=== PATIENT | female | born 1945 | race Caucasian/White ===

== ENCOUNTER 2017-07-14 05:42 | Inpatient (IN) ==
[2017-07-07 10:32] LABS: Basophils # 0.1 10*3/uL (0.0-0.2); Eosinophils # 0.1 10*3/uL (0.0-0.87); Eosinophils % 1.9 % (0.00-10.9); Hematocrit 42.8 VOL% (35.7-47.0); Hemoglobin 14.6 GM/DL (12.0-16.0); Immature Granulocytes % 0.4 %; Immature Granulocytes Absolute 0.02 #; Lymphocytes # 1.7 10*3/uL (1.4-4.0); Lymphocytes % 33.2 % (21.3-54.2); Mean Corpuscular HGB Conc 34.1 GM/DL (32-36); Mean Corpuscular Hemoglobin 34 PG (27-34); Mean Corpuscular Volume 100.2 FL (87-102); Mean Platelet Volume 9.1 FL (9.6-12.0); Monocytes # 0.5 10*3/uL (0.11-0.8); Monocytes % 9.8 % (1.7-12.7); Neutrophils # 2.8 10*3/uL (1.4-7.4); Neutrophils % 53.7 % (38.7-73.9); Platelet Count 360 T/CUMM (130-400); Red Blood Count 4.27 MC/CUMM (3.8-5.5); Red Cell Distribution Width 17.4 % (9.3-17.3); White Blood Count 5.2 T/CUMM (4-12)
[2017-07-07 10:57] LABS: Apearance,Urine CLEAR (Clear); Bacteria,Urine Occasional /HPF (Few); Bilirubin,Urine Negative (Negative); Blood, Urine Negative (Negative); Glucose,Urine (UA) Negative (Negative); Ketones,Urine Negative (Negative); Nitrite,Urine Negative (Negative); Protein,Urine Negative; RBC,Urine <1 /HPF (0-4); Urine Color Straw (Yellow); Urine Specific Gravity 1.004 (1.001-1.035); Urine Urobilinogen < 2.0 EU/DL (0.2-1.0); WBC,Urine 1 /HPF (0-6)
[2017-07-07 11:05] LABS: Alanine Aminotransferase 50 U/L (13-56); Albumin 3.8 G/DL (3.4-5.0); Alkaline Phosphatase 106 U/L (45-117); Aspartate Amino Transferase 33 U/L (0-37); Bilirubin,Total < 0.39 MG/DL (0.2-1.0); Blood Urea Nitrogen 16 MG/DL (7-18); Calcium 8.8 MG/DL (8.5-10.1); Glucose 93 MG/DL (74-106); Osmolality,Calculated 279.4 MOS/KG (273-304); Potassium 4.8 MMOL/L (3.5-5.1); Sodium 140 MMOL/L (136-145); Total Protein 7.2 G/DL (6.4-8.3)
[2017-07-07 11:06] LABS: INR 0.9; PT Patient Result 9.9 SECS; Partial Thromboplastin Time 26.6 SECS (0-40)
[2017-07-14] MEDS ORDERED: LACTATED RINGERS 1,000 ML IV SCH (06:00)
[2017-07-14] MEDS ORDERED: FAMOTIDINE 20 MG TABLET PO ONE ×2 (06:08→06:29)
[2017-07-14] MEDS ORDERED: LORazepam 0.5 MG TABLET PO ONE ×2 (06:08→06:29)
[2017-07-14 06:56] LABS: Basophils % 0.9 % (0.0-0.8); Eosinophils # 0.1 10*3/uL (0.0-0.87); Eosinophils % 2.6 % (0.00-10.9); Hematocrit 38.8 VOL% (35.7-47.0); Hemoglobin 13.3 GM/DL (12.0-16.0); Immature Granulocytes % 0.2 %; Immature Granulocytes Absolute 0.01 #; Lymphocytes # 1.6 10*3/uL (1.4-4.0); Lymphocytes % 35.1 % (21.3-54.2); Mean Corpuscular HGB Conc 34.3 GM/DL (32-36); Mean Corpuscular Hemoglobin 35 PG (27-34); Mean Corpuscular Volume 101.3 FL (87-102); Mean Platelet Volume 9.1 FL (9.6-12.0); Monocytes # 0.5 10*3/uL (0.11-0.8); Monocytes % 10.9 % (1.7-12.7); Neutrophils # 2.3 10*3/uL (1.4-7.4); Neutrophils % 50.3 % (38.7-73.9); Platelet Count 292 T/CUMM (130-400); Red Blood Count 3.83 MC/CUMM (3.8-5.5); White Blood Count 4.6 T/CUMM (4-12)
[2017-07-14] MEDS ORDERED: ceFAZolin 1,000 MG in SYRINGE 1 EACH IV ONE (07:00)
[2017-07-14] MEDS ORDERED: VANCOMYCIN INJ 1,000 MG in SODIUM CHLORIDE 0.9% 250 ML IV ONE (07:00)
[2017-07-14 07:14] LABS: INR 0.9; PT Patient Result 9.8 SECS; Partial Thromboplastin Time 25.7 SECS (0-40)
[2017-07-14 07:31] LABS: Calcium 8.5 MG/DL (8.5-10.1); Magnesium 2.1 MG/DL (1.8-2.4); Osmolality,Calculated 283.1 MOS/KG (273-304); Potassium 4.2 MMOL/L (3.5-5.1)
[2017-07-14] MEDS ORDERED: VANCOMYCIN 1,000 MG VIAL ONE (08:22)
[2017-07-14] MEDS ORDERED: ceFAZolin 1,000 MG VIAL ONE (08:22)
[2017-07-14] MEDS ORDERED: LORazepam 0.5 MG TABLET ONE (08:27)
[2017-07-14] MEDS ORDERED: FAMOTIDINE 20 MG TABLET ONE (08:27)
[2017-07-14] MEDS ORDERED: ROPIVACAINE 0.5% 30 ML VIAL ONE (08:47)
[2017-07-14] MEDS ORDERED: TRANEXAMIC ACID 1,000 MG/10 ML VIAL IV ONE (09:01)
[2017-07-14] MEDS ORDERED: MORPHINE 2 MG/1 ML SYRINGE IV PRN ×2 (09:10)
[2017-07-14] MEDS ORDERED: ZALEPLON 5 MG CAPSULE PO PRN (09:10)
[2017-07-14] MEDS ORDERED: MAGNESIUM HYDROXIDE SUSP 30 ML UDCUP PO PRN (09:10)
[2017-07-14] MEDS ORDERED: diphenhydrAMINE CAP 25 MG CAPSULE PO PRN (09:10)
[2017-07-14] MEDS ORDERED: oxyCODONE IR 5 MG TABLET PO PRN (09:10)
[2017-07-14] MEDS ORDERED: ONDANSETRON 4 MG/2 ML VIAL IV PRN ×2 (09:10→11:23)
[2017-07-14] MEDS ORDERED: BACITRACIN OINT 0.9 GM PACK TOP ONE (10:32)
[2017-07-14] MEDS: LACTATED RINGERS 1,000 ML IV SCH ×2 (10:46→22:43)
[2017-07-14] MEDS ORDERED: PROPOFOL 200 MG/20 ML VIAL IV ONE (11:17)
[2017-07-14] MEDS ORDERED: DESFLURANE 1 UNIT/15 MINUTE INH ONE (11:17)
[2017-07-14] MEDS ORDERED: fentaNYL 100 MCG/2 ML VIAL ONE (11:18)
[2017-07-14] MEDS ORDERED: KETOROLAC 30 MG/1 ML VIAL ONE (11:18)
[2017-07-14] MEDS ORDERED: MIDAZOLAM 2 MG/2 ML VIAL ONE (11:18)
[2017-07-14] MEDS ORDERED: GLYCOPYRROLATE 0.4 MG/2 ML VIAL ONE (11:18)
[2017-07-14] MEDS ORDERED: ONDANSETRON 4 MG/2 ML VIAL ONE (11:18)
[2017-07-14] MEDS ORDERED: NEOSTIGMINE 10 MG/10 ML VIAL ONE (11:19)
[2017-07-14] MEDS ORDERED: ACETAMINOPHEN 1,000 MG/100 ML VIAL IV ONE (11:19)
[2017-07-14] MEDS ORDERED: SUCCINYLCHOLINE 200 MG/10 ML VIAL ONE (11:19)
[2017-07-14] MEDS ORDERED: ROCURONIUM 100 MG/10 ML VIAL IV ONE (11:19)
[2017-07-14] MEDS: HYDROmorphone 2 MG/1 ML VIAL IV PRN ×2 (11:30→11:35)
[2017-07-14] MEDS: ACETAMINOPHEN 500 MG TABLET PO SCH ×2 (12:25→18:39)
[2017-07-14] MEDS: ceFAZolin 1,000 MG in SYRINGE 1 EACH IV SCH (17:36)
[2017-07-14] MEDS: HYDROXYUREA 500 MG CAPSULE PO SCH (18:37)
[2017-07-14] MEDS ORDERED: HYDROXYUREA 500 MG CAPSULE PO SCH (19:00)
[2017-07-14] MEDS: rOPINIRole 4 MG TABLET PO SCH (20:35)
[2017-07-14] MEDS: DOCUSATE SODIUM 100 MG CAPSULE PO SCH (20:35)
[2017-07-15] MEDS: ACETAMINOPHEN 500 MG TABLET PO SCH ×2 (01:31→06:21)
[2017-07-15] MEDS: ceFAZolin 1,000 MG in SYRINGE 1 EACH IV SCH (01:32)
[2017-07-15] MEDS: FONDAPARINUX 2.5 MG/0.5 ML SYRINGE SUBCUT SCH (06:20)
[2017-07-15] MEDS: oxyCODONE IR 5 MG TABLET PO PRN ×2 (06:21→16:14)
[2017-07-15 06:52] LABS: Basophils % 0.6 % (0.0-0.8); Eosinophils % 0.6 % (0.00-10.9); Hematocrit 33.8 VOL% (35.7-47.0); Hemoglobin 11.3 GM/DL (12.0-16.0); Immature Granulocytes % 0.4 %; Immature Granulocytes Absolute 0.03 #; Lymphocytes # 1.2 10*3/uL (1.4-4.0); Lymphocytes % 16.9 % (21.3-54.2); Mean Corpuscular HGB Conc 33.4 GM/DL (32-36); Mean Corpuscular Hemoglobin 34 PG (27-34); Mean Corpuscular Volume 101.8 FL (87-102); Mean Platelet Volume 9.8 FL (9.6-12.0); Monocytes # 0.7 10*3/uL (0.11-0.8); Monocytes % 10.3 % (1.7-12.7); Neutrophils # 4.9 10*3/uL (1.4-7.4); Neutrophils % 71.2 % (38.7-73.9); Platelet Count 257 T/CUMM (130-400); Red Blood Count 3.32 MC/CUMM (3.8-5.5); Red Cell Distribution Width 18.2 % (9.3-17.3); White Blood Count 6.9 T/CUMM (4-12)
[2017-07-15 07:23] LABS: Calcium 7.8 MG/DL (8.5-10.1); Osmolality,Calculated 277.5 MOS/KG (273-304); Potassium 3.9 MMOL/L (3.5-5.1)
[2017-07-15] MEDS: CHOLECALCIFEROL 1,000 UNIT TABLET PO SCH (08:47)
[2017-07-15] MEDS: PANTOPRAZOLE 40 MG TABLET PO SCH (08:47)
[2017-07-15] MEDS: DOCUSATE SODIUM 100 MG CAPSULE PO SCH ×2 (08:47→19:30)
[2017-07-15] MEDS ORDERED: HYDROXYUREA 500 MG CAPSULE PO SCH ×2 (09:00)
[2017-07-15] MEDS: HYDROXYUREA 500 MG CAPSULE PO SCH (09:56)
[2017-07-15] MEDS: LACTATED RINGERS 1,000 ML IV SCH (17:46)
[2017-07-15] MEDS: rOPINIRole 4 MG TABLET PO SCH (19:30)
[2017-07-16 05:38] LABS: Basophils % 0.5 % (0.0-0.8); Eosinophils # 0.1 10*3/uL (0.0-0.87); Eosinophils % 1.8 % (0.00-10.9); Hematocrit 33.6 VOL% (35.7-47.0); Hemoglobin 11.3 GM/DL (12.0-16.0); Immature Granulocytes % 0.7 %; Immature Granulocytes Absolute 0.05 #; Lymphocytes # 1.3 10*3/uL (1.4-4.0); Lymphocytes % 17.1 % (21.3-54.2); Mean Corpuscular HGB Conc 33.6 GM/DL (32-36); Mean Corpuscular Hemoglobin 34 PG (27-34); Mean Corpuscular Volume 102.1 FL (87-102); Mean Platelet Volume 9.6 FL (9.6-12.0); Monocytes # 0.8 10*3/uL (0.11-0.8); Monocytes % 10.7 % (1.7-12.7); Neutrophils # 5.3 10*3/uL (1.4-7.4); Neutrophils % 69.2 % (38.7-73.9); Platelet Count 251 T/CUMM (130-400); Red Blood Count 3.29 MC/CUMM (3.8-5.5); Red Cell Distribution Width 18.6 % (9.3-17.3); White Blood Count 7.7 T/CUMM (4-12)
[2017-07-16] MEDS: FONDAPARINUX 2.5 MG/0.5 ML SYRINGE SUBCUT SCH (05:51)
[2017-07-16] MEDS: HYDROXYUREA 500 MG CAPSULE PO SCH (08:03)
[2017-07-16] MEDS: DOCUSATE SODIUM 100 MG CAPSULE PO SCH ×2 (08:34→19:30)
[2017-07-16] MEDS: PANTOPRAZOLE 40 MG TABLET PO SCH (08:34)
[2017-07-16] MEDS: CHOLECALCIFEROL 1,000 UNIT TABLET PO SCH (08:34)
[2017-07-16] MEDS: oxyCODONE IR 5 MG TABLET PO PRN ×2 (10:04→14:56)
[2017-07-16] MEDS: rOPINIRole 4 MG TABLET PO SCH (19:30)
[2017-07-17 03:39] LABS: Basophils # 0.1 10*3/uL (0.0-0.2); Basophils % 0.8 % (0.0-0.8); Eosinophils # 0.2 10*3/uL (0.0-0.87); Hematocrit 33.5 VOL% (35.7-47.0); Hemoglobin 11.3 GM/DL (12.0-16.0); Immature Granulocytes % 0.8 %; Immature Granulocytes Absolute 0.05 #; Lymphocytes # 1.4 10*3/uL (1.4-4.0); Lymphocytes % 23.9 % (21.3-54.2); Mean Corpuscular HGB Conc 33.7 GM/DL (32-36); Mean Corpuscular Hemoglobin 35 PG (27-34); Mean Corpuscular Volume 102.4 FL (87-102); Mean Platelet Volume 9.3 FL (9.6-12.0); Monocytes # 0.7 10*3/uL (0.11-0.8); Monocytes % 12.3 % (1.7-12.7); Neutrophils # 3.5 10*3/uL (1.4-7.4); Neutrophils % 58.2 % (38.7-73.9); Platelet Count 258 T/CUMM (130-400); Red Blood Count 3.27 MC/CUMM (3.8-5.5); Red Cell Distribution Width 18.4 % (9.3-17.3); White Blood Count 5.9 T/CUMM (4-12)
[2017-07-17] MEDS: FONDAPARINUX 2.5 MG/0.5 ML SYRINGE SUBCUT SCH (05:11)
[2017-07-17] MEDS: CHOLECALCIFEROL 1,000 UNIT TABLET PO SCH (08:06)
[2017-07-17] MEDS: PANTOPRAZOLE 40 MG TABLET PO SCH (08:06)
[2017-07-17] MEDS: DOCUSATE SODIUM 100 MG CAPSULE PO SCH (08:06)
[2017-07-17] MEDS: HYDROXYUREA 500 MG CAPSULE PO SCH (08:08)
[2017-07-17 10:09] VITALS: BP 111/52
== END 2017-07-17 10:50 | disposition home health service (06) | DRG 470 ==
LOC: N.SDSINP 05:42 → N.3E 11:52
PROVIDERS: ADMIT Orthopaedic Surgery; ATTEND Orthopaedic Surgery